=== PATIENT | female | born 1990 | race Caucasian/White ===

== ENCOUNTER 2020-07-18 10:52 | Emergency (ER) | payer BC ==
[~2020-07-18] VITALS: Ht 165.1 cm; Wt 88.9 kg
[2020-07-18 10:55] VITALS: BP 161/98
[2020-07-18] MEDS ORDERED: KETOROLAC TROMETH 60MG/2ML VIAL IM ONE (13:15)
[2020-07-18] MEDS ORDERED: methylPREDNISolone SOD SUCC 125 MG/2 ML VL IM ONE (13:15)
== END 2020-07-18 14:22 | disposition home or self-care (01) ==
LOC: ER 10:52
DX: T88.1XXA Other complications following immunization, not elsewhere classified, initial encounter (principal); L25.1 Unspecified contact dermatitis due to drugs in contact with skin; Z20.822 Contact with and (suspected) exposure to COVID-19; Z88.1 Allergy status to other antibiotic agents; Y92.89 Other specified places as the place of occurrence of the external cause
CPT/HCPCS: 36415; 71045; 87426; 96372; 99284; J1885; J2930